=== PATIENT | female | born 1955 | race Hispanic/Latino ===

== ENCOUNTER 2021-09-05 08:46 | Outpatient (CLI) | payer MEDICARE, BC ==
[2021-09-05 21:24] LABS: SARS-CoV-2 PCR by NAA Not Detected (NotDetected)
== END 2021-09-05 08:47 | disposition home or self-care (01) ==
LOC: LABBT 08:46
PROVIDERS: ATTEND Ophthalmology Retina Specialist
DX: H35.371 Puckering of macula, right eye (principal); H54.7 Unspecified visual loss; Z20.822 Contact with and (suspected) exposure to COVID-19
CPT/HCPCS: U0003; U0005

== ENCOUNTER 2021-09-10 07:04 | Day surgery (SDC) | payer MEDICARE, BC ==
[2021-09-06 13:30] VITALS: BMI 35.4
[2021-09-10] MEDS ORDERED: Phenylephrine 2.5% Ophth Soln 5 ML BOT ONE (07:34)
[2021-09-10] MEDS ORDERED: Cyclopentolate 1% Opth Drop 2 ML BOT ONE (07:34)
[2021-09-10] MEDS ORDERED: Lidocaine 1% MPF 2 ML VIAL ONE (07:35)
[2021-09-10] MEDS ORDERED: EPINEPHrine 0.3 MG in Ophthalmic Irrigation Solution 500 ML IRR SCH (07:45)
[2021-09-10] MEDS ORDERED: Midazolam HCl 2 mg/2 ml Vial ONE (08:01)
[2021-09-10] MEDS ORDERED: fentaNYL Citrate/PF 100 MCG/2 ML SYRINGE ONE (08:02)
[2021-09-10] MEDS ORDERED: Maxitrol 0.1% Opth Oint 3.5 GM TUBE ONE (09:15)
[2021-09-10] MEDS ORDERED: Lidocaine 4% PF 5 ML AMP ONE (09:15)
[2021-09-10] MEDS ORDERED: Bupivacaine 0.75% 10 ML VIAL ONE (09:15)
[2021-09-10] MEDS ORDERED: Indocyanine Green 25 MG/10 ML VIAL ONE (09:15)
[2021-09-10] MEDS ORDERED: Lidocaine 1% PF 5 ML VIAL ONE (09:15)
[2021-09-10] MEDS ORDERED: CEFAZOLIN 1 GM VIAL ONE (09:15)
[2021-09-10] MEDS ORDERED: PROPOFOL 200 MG/20 ML VIAL ONE (09:15)
[2021-09-10] MEDS ORDERED: Triamcinolone 40 MG/ML VIAL ONE (09:15)
== END 2021-09-10 10:25 | disposition home or self-care (01) ==
LOC: SDC 07:04
PROVIDERS: ATTEND Ophthalmology Retina Specialist
PROC: 08T43ZZ Resection of Right Vitreous, Percutaneous Approach (ICD-10-PCS; principal; 2021-09-10)
PROC: 08NE3ZZ Release Right Retina, Percutaneous Approach (ICD-10-PCS; 2021-09-10)
DX: H35.371 Puckering of macula, right eye (principal); E78.5 Hyperlipidemia, unspecified; G47.30 Sleep apnea, unspecified; Z85.3 Personal history of malignant neoplasm of breast; Z79.899 Other long term (current) drug therapy
CPT/HCPCS: J0171; J0690; J2250; J2704; J3301; J3490